=== PATIENT | male | born 1955 | race Caucasian/White ===

== ENCOUNTER 2024-08-04 09:15 | Inpatient (IN) | payer MEDICARE ==
[2024-07-29 11:48] LABS: BASOPHILS % (AUTO) 0.6 % (0-1); EOSINOPHILS # (AUTO) 0.3 X10'3 (0-0.9); EOSINOPHILS % (AUTO) 4.3 % (0-6); LYMPHOCYTES # (AUTO) 1.1 X10'3 (1.1-4.8); LYMPHOCYTES % (AUTO) 16.9 % (21-51); MEAN CORPUSCULAR HEMOGLOBIN 29.2 PG (27.0-31.0); MEAN CORPUSCULAR HGB CONC 33.2 g/dL (33.0-36.5); MEAN CORPUSCULAR VOLUME 87.9 FL (78-98); MEAN PLATELET VOLUME 6.9 FL (7.4-10.4); MONOCYTES # (AUTO) 0.7 X10'3 (0-0.9); MONOCYTES % (AUTO) 10.7 % (2-12); NEUTROPHILS # (AUTO) 4.4 X10'3 (1.8-7.7); NEUTROPHILS % (AUTO) 67.5 % (42-75); PRE OP HEMATOCRIT 43.6 % (42.0-52.0); PRE OP HEMOGLOBIN 14.5 g/dL (14.0-17.9); PRE OP PLATELET COUNT 294 X10'3 (140-440); PRE OP WHITE BLOOD COUNT 6.5 10'3 (4.8-10.8); RED BLOOD COUNT 4.96 X10'6 (4.70-6.10); RED CELL DISTRIBUTION WIDTH 14.9 % (11.5-14.5)
[2024-07-29 12:07] LABS: ALBUMIN 3.6 G/DL (3.4-5.0); ALKALINE PHOSPHATASE 170 IU/L (46-116); BLOOD UREA NITROGEN 23 MG/DL (7-18); CALCIUM 9.2 MG/DL (8.5-10.1); CHLORIDE 103 MMOL/L (99-107); PRE OP ALT 70 U/L (30-65); PRE OP ANION GAP 6 (8-16); PRE OP AST 54 U/L (10-37); PRE OP BILIRUB, TOTAL 1.2 MG/DL (0.0-1.0); PRE OP GLUCOSE 96 MG/DL (70-104); PRE OP POTASSIUM 4.6 MMOL/L (3.4-5.1); PRE OP SODIUM 139 MMOL/L (135-145); TOTAL CARBON DIOXIDE 30.5 MMOL/L (24-32); TOTAL PROTEIN 7.2 G/DL (6.4-8.2); eGFR 74 ML/MIN
[~2024-08-04] VITALS: Ht 185.4 cm; Wt 61.5 kg
[2024-08-04] VITALS (22 sets, daily range): BP systolic 116–156; BP diastolic 58–84; PULSE 54–73; RESP 12–18; TEMP 97.4–98.3; O2SAT 96–98
[2024-08-04] MEDS: cefazolin 2gm/D5W 100mL 100 ML IV ONE (05:30)
[~2024-08-04 09:15] MED LIST: ATOR20TA PO; MORPHINE PO; NORCO PO
[2024-08-04] MEDS: famotidine 20mg tablet PO ONE (10:06)
[2024-08-04] MEDS: ringers solution, lacted 1,000 ML IV SCH (10:07)
[2024-08-04] MEDS: tranexamic acid 650mg tablet PO ONE (10:40)
[2024-08-04] MEDS ORDERED: fentaNYL /PF 50mcg/ml 5ml ampule ONE (13:18)
[2024-08-04] MEDS ORDERED: midazolam 1 mg/ML 2ml injection ONE (13:18)
[2024-08-04] MEDS ORDERED: sevoflurane 250ml liquid IH ONE (13:26)
[2024-08-04] MEDS ORDERED: vancomycin 1,000mg inj ONE (14:20)
[2024-08-04] MEDS ORDERED: 0.9 % SODIUM CHLORIDE 10 ML VIAL ONE (14:20)
[2024-08-04] MEDS ORDERED: ROPIVAcaine 0.5% (5mg/ml) 30ml vial ONE (14:20)
[2024-08-04] MEDS ORDERED: LIDOcaine 1%/PF 5ML 10 MG/ML VIAL ONE (14:20)
[2024-08-04] MEDS ORDERED: rocuronium 10mg/ml inj IV ONE (14:20)
[2024-08-04] MEDS ORDERED: ePHEDrine 50MG/ML INJ. ONE (14:20)
[2024-08-04] MEDS ORDERED: propofol inj 20 ML IV ONE (14:20)
[2024-08-04] MEDS ORDERED: LIDOcaine 2% (20mg/ml) 5ml vial ONE (14:20)
[2024-08-04] MEDS ORDERED: ondansetron/PF 4mg/2ml inj ONE (14:28)
[2024-08-04] MEDS ORDERED: glycopyrrolate 0.2mg/ml inj ONE (15:19)
[2024-08-04] MEDS ORDERED: neostigmine methylsulfate 1 MG/ML 10ml vial ONE (15:19)
[2024-08-04] MEDS ORDERED: magnesium hydroxide 30ml (MOM) UD suspension PO PRN (15:40)
[2024-08-04] MEDS ORDERED: bisacodyl 10mg suppository rectal RC PRN (15:40)
[2024-08-04] MEDS ORDERED: HYDROmorphone 1 mg/ml syringe IV PRN (15:40)
[2024-08-04] MEDS ORDERED: ondansetron/PF 4mg/2ml inj IV PRN (15:40)
[2024-08-04] MEDS ORDERED: HYDROmorphone inj. 0.5 MG/0.5 ML DISP.SYRIN IV PRN (15:40)
[2024-08-04] MEDS ORDERED: acetaminophen 325mg tablet PO PRN (15:40)
[2024-08-04] MEDS ORDERED: diphenhydrAMINE 25mg capsule PO PRN ×2 (15:40)
[2024-08-04] MEDS ORDERED: oxyCODONE IR 5mg (immed. release) tablet PO PRN ×2 (15:40)
[2024-08-04] MEDS ORDERED: ceFAZolin/D5W- 1GM premix 50 ML IV SCH (16:00)
[2024-08-04] MEDS: ketorolac trometh 30MG/ML vial 30 MG/ML VIAL ONE (17:22)
[2024-08-04] MEDS: ROPIVAcaine 0.5% (5mg/ml) 30ml vial ONE (17:22)
[2024-08-04] MEDS: vancomycin 1,000mg inj ONE (17:22)
[2024-08-04] MEDS: cloNIDine hcl/PF 100mcg/ml inj ONE (17:22)
[2024-08-04] MEDS: tobramycin sulfate 1.2gm vial ONE (17:23)
[2024-08-04] MEDS: acetaminophen 325mg tablet PO SCH (20:00)
[2024-08-04] MEDS ORDERED: vancomycin/NS 1 GM ADD-VANTAGE 250 ML IV SCH (20:00)
[2024-08-04] MEDS ORDERED: morphine sulfate IR 15MG tablet PO SCH (20:00)
[2024-08-04] MEDS: atorvastatin 20mg tablet PO SCH (20:53)
[2024-08-04] MEDS: morphine ER 15mg tablet PO SCH (20:53)
[2024-08-04] MEDS: potassium cl 20mEq in 1/2 NS 1,000 ML IV SCH (20:54)
[2024-08-04] MEDS: sennosides 8.6mg tablet PO SCH (21:00)
[2024-08-04] MEDS ORDERED: atorvastatin 20mg tablet PO SCH (21:00)
[2024-08-04] MEDS: ceFAZolin/D5W- 1GM premix 50 ML IV SCH (22:44)
[2024-08-05] MEDS: HYDROcodone/acetaminophen 10/325mg tab PO PRN (00:30)
[2024-08-05] MEDS: vancomycin/NS 1 GM ADD-VANTAGE 250 ML IV SCH (01:51)
[2024-08-05 02:00] VITALS: BP 110/58; PULSE 60; RESP 16; TEMP 97.3; O2SAT 97
[2024-08-05 06:00] VITALS: BP 113/65; PULSE 65; RESP 16; TEMP 97.4; O2SAT 98
[2024-08-05 06:38] LABS: BASOPHILS % (AUTO) 0 % (0-1); EOSINOPHILS % (AUTO) 0 % (0-6); HEMATOCRIT 40.3 % (42.0-52.0); HEMOGLOBIN 13.3 g/dl (14.0-17.9); LYMPHOCYTES # (AUTO) 0.5 X10'3 (1.1-4.8); LYMPHOCYTES % (AUTO) 4.7 % (21-51); MEAN CORPUSCULAR HEMOGLOBIN 29.2 PG (27.0-31.0); MEAN CORPUSCULAR VOLUME 88.3 FL (78-98); MEAN PLATELET VOLUME 7.5 FL (7.4-10.4); MONOCYTES # (AUTO) 0.5 X10'3 (0-0.9); MONOCYTES % (AUTO) 5.1 % (2-12); NEUTROPHILS # (AUTO) 8.8 X10'3 (1.8-7.7); NEUTROPHILS % (AUTO) 90.2 % (42-75); PLATELET COUNT 268 X10'3 (140-440); RED BLOOD COUNT 4.56 X10'6 (4.70-6.10); RED CELL DISTRIBUTION WIDTH 15.1 % (11.5-14.5); WHITE BLOOD COUNT 9.8 X10'3 (4.5-11.0)
[2024-08-05 06:52] LABS: ANION GAP 4 (8-16); CHLORIDE 103 MMOL/L (99-107); POTASSIUM 4.2 MMOL/L (3.5-5.1); SODIUM 137 MMOL/L (135-145); TOTAL CARBON DIOXIDE 29.9 MMOL/L (24-32)
[2024-08-05 08:01] VITALS: RESP 12; O2SAT 97
[2024-08-05] MEDS: aspirin 325mg tablet PO SCH (08:17)
[2024-08-05] MEDS: celeCOXIB 100mg capsule PO SCH (08:19)
[2024-08-05 08:50] VITALS: RESP 18
[2024-08-05 10:00] VITALS: BP 115/74; PULSE 73; RESP 14; TEMP 97.6; O2SAT 100
[2024-08-05] MEDS ORDERED: celeCOXIB 100mg capsule PO SCH (20:00)
[2024-08-06] MEDS ORDERED: acetaminophen 325mg tablet PO PRN (13:15)
== END 2024-08-05 10:50 | disposition home health service (06) | DRG 908 ==
LOC: PAS IN 09:15 → ORTHO 4S 17:50
PROVIDERS: ADMIT Orthopaedic Surgery; ATTEND Orthopaedic Surgery
PROC: 0RRK00Z Replacement of Left Shoulder Joint with Reverse Ball and Socket Synthetic Substitute, Open Approach (ICD-10-PCS; 2024-08-04)
PROC: 0RPK0JZ Removal of Synthetic Substitute from Left Shoulder Joint, Open Approach (ICD-10-PCS; principal; 2024-08-04 13:26)
DX: T85.698A Other mechanical complication of other specified internal prosthetic devices, implants and grafts, initial encounter (principal); M97.32XA Periprosthetic fracture around internal prosthetic left shoulder joint, initial encounter; Z68.1 Body mass index [BMI] 19.9 or less, adult; X58.XXXA Exposure to other specified factors, initial encounter; M75.122 Complete rotator cuff tear or rupture of left shoulder, not specified as traumatic; G89.29 Other chronic pain; Y83.8 Other surgical procedures as the cause of abnormal reaction of the patient, or of later complication, without mention of misadventure at the time of the procedure; Y92.89 Other specified places as the place of occurrence of the external cause; R63.6 Underweight
CPT/HCPCS: 36415; 80051; 80053; 82948; 85025; 87081; 93005; 97161; 97530; A4565; A4618; A7000; C1713; C1776; G0378; J0690; J0735; J1100; J1885; J2003; J2250; J2405; J2704; J2710; J2795; J3010; J3260; J3370; J3480; J3490; J7120

== ENCOUNTER 2024-08-09 18:27 | Emergency (ER) | payer MEDICARE ==
[~2024-08-09] VITALS: Ht 185.4 cm; Wt 62.4 kg
[2024-08-09 19:27] VITALS: BP 120/79; PULSE 65; RESP 16; TEMP 98.1; O2SAT 99
== END 2024-08-09 19:31 | disposition home or self-care (01) ==
LOC: ER 18:27
DX: M75.122 Complete rotator cuff tear or rupture of left shoulder, not specified as traumatic (principal); Y83.8 Other surgical procedures as the cause of abnormal reaction of the patient, or of later complication, without mention of misadventure at the time of the procedure; Z79.899 Other long term (current) drug therapy
CPT/HCPCS: 99281; A6449

== ENCOUNTER 2025-09-30 14:01 | Outpatient (CLI) | payer MEDICARE, OTHER ==
--- NOTE | 2025-09-30 16:04 | RADIOLOGY REPORT ---
CLINICAL INFORMATION: COMPLETE ROTATR-CUFF TEAR/RUPTR OF LEFT SHOULDER, NOT TRAUMA. TECHNIQUE: Axial CT images of the left shoulder were obtained without IV contrast. Coronal and sagittal reformatted images were obtained, reviewed, and stored. All CT scans at this medical facility are performed using dose modulation techniques as appropriate to a performed exam including the followin g: Automated exposure control was utilized; adjustment of the MA and/or KV according to patient size; and use of iterative reconstruction technique. CTDIvol = 5.6 mGy DLP = 138.19 mGy-cm COMPARISON: None FINDINGS: Postsurgical changes are seen from placement of an antibiotic spacer in the left glenohumeral joint with associated polymethylmethacrylate cement and central metallic component. The antibiotic spacer is in expected position. Prominent erosive changes are seen in the [place] glenoid, most prominent posteriorly. There is glenoid retroversion measuring up to 32 degrees. There is sclerosis at the glenoid. No significant joint effusion is seen. Mild arthritic changes at the acromioclavicular joint. No significant soft tissue abnormality identified. No acute or suspicious abnormality identified in the visualized portions of the left lung. IMPRESSION: 1. Postsurgical changes from placement of an antibiotic spacer in the left glenohumeral joint. 2. 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
== END 2025-09-30 23:59 | disposition home or self-care (01) ==
LOC: RAD 14:01
PROVIDERS: ATTEND Orthopaedic Surgery
DX: T84.84XA Pain due to internal orthopedic prosthetic devices, implants and grafts, initial encounter (principal); M25.512 Pain in left shoulder; M85.812 Other specified disorders of bone density and structure, left shoulder; M75.122 Complete rotator cuff tear or rupture of left shoulder, not specified as traumatic; X58.XXXA Exposure to other specified factors, initial encounter; Y93.89 Activity, other specified; Y92.89 Other specified places as the place of occurrence of the external cause; Y99.8 Other external cause status
CPT/HCPCS: 73200